=== PATIENT | male | born 1965 | race American Indian/Alaskan Native ===

== ENCOUNTER 2017-02-11 19:25 | Inpatient (IN) ==
[2017-02-11] MEDS ORDERED: ACETAMINOPHEN 325 MG TABLET PO PRN (21:31)
[2017-02-11] MEDS ORDERED: MORPHINE 2 MG/1 ML SYRINGE IV PRN (21:37)
[2017-02-12 03:11] LABS: Basophils % 0.5 % (0.0-0.8); Eosinophils # 0.3 10*3/uL (0.0-0.87); Eosinophils % 7.4 % (0.00-10.9); Hematocrit 31.4 VOL% (42.0-52.0); Hemoglobin 11.3 GM/DL (14.0-18.0); Immature Granulocytes % 0.3 %; Immature Granulocytes Absolute 0.01 #; Lymphocytes # 0.8 10*3/uL (1.4-4.0); Lymphocytes % 20.8 % (21.2-54.2); Mean Corpuscular Hemoglobin 38 PG (27-34); Mean Corpuscular Volume 104.3 FL (87-102); Mean Platelet Volume 11.3 FL (9.6-12.0); Monocytes # 0.6 10*3/uL (0.11-0.8); Monocytes % 15.7 % (1.7-12.7); Neutrophils # 2.2 10*3/uL (1.4-7.4); Neutrophils % 55.3 % (38.7-73.9); Red Blood Count 3.01 MC/CUMM (3.8-5.5); Red Cell Distribution Width 13.6 % (9.3-17.3); White Blood Count 3.9 T/CUMM (4-12)
[2017-02-12 03:27] LABS: Platelet Count 53 T/CUMM (130-400)
[2017-02-12 03:45] LABS: Calcium 7.6 MG/DL (8.5-10.1); Osmolality,Calculated 281.8 MOS/KG (273-304); Potassium 3.3 MMOL/L (3.5-5.1)
[2017-02-12 05:49] LABS: Eosinophils 5 % (0-10); Lymphocytes 24 % (20-55); Segmented Neutrophils 67 % (50-85); Total Cells Counted 100
[2017-02-12 05:50] LABS: Anisocytosis 1+; Platelet Estimate Decreased; Tear Drop Cells Few
[2017-02-12] MEDS: amLODIPine 10 MG TABLET PO SCH (09:17)
[2017-02-12] MEDS: ASPIRIN EC 81 MG TABLET PO SCH (09:18)
[2017-02-12] MEDS: ALLOPURINOL 100 MG TABLET PO SCH (09:18)
[2017-02-12] MEDS: ENOXAPARIN 30 MG/0.3 ML SYRINGE SUBCUT SCH (09:18)
[2017-02-12] MEDS: PANTOPRAZOLE 40 MG TABLET PO SCH (09:18)
[2017-02-12] MEDS: CALCIUM (CARBONATE) 500 MG TABLET PO SCH ×2 (09:18→21:03)
[2017-02-13] MEDS: ASPIRIN EC 81 MG TABLET PO SCH (08:44)
[2017-02-13] MEDS: ALLOPURINOL 100 MG TABLET PO SCH (08:44)
[2017-02-13] MEDS: amLODIPine 10 MG TABLET PO SCH (08:44)
[2017-02-13] MEDS: CALCIUM (CARBONATE) 500 MG TABLET PO SCH (08:44)
[2017-02-13] MEDS: PANTOPRAZOLE 40 MG TABLET PO SCH (08:44)
[2017-02-13] MEDS: ENOXAPARIN 30 MG/0.3 ML SYRINGE SUBCUT SCH (08:47)
[2017-02-13 12:25] VITALS: BP 115/67
== END 2017-02-13 13:30 | disposition home or self-care (01) | DRG 313 ==
LOC: EDUNIT# → N.ED 19:25 → N.EDINP 21:31 → N.TELEN 22:02
PROVIDERS: ADMIT Internal Medicine Infectious Disease; ATTEND Internal Medicine Infectious Disease

== ENCOUNTER 2018-04-11 07:54 | Inpatient (IN) ==
[2018-04-11] MEDS ORDERED: ACETAMINOPHEN 325 MG TABLET PO PRN (10:13)
[2018-04-11] MEDS ORDERED: ONDANSETRON 4 MG/2 ML VIAL IV PRN (10:13)
[2018-04-11] MEDS ORDERED: guaiFENesin/DM ER 600-30 MG TABLET PO PRN (10:13)
[2018-04-11] MEDS ORDERED: ALBUTEROL 2.5 MG/3 ML NEB RESP TX PRN (10:30)
[2018-04-11] MEDS: cefTRIAXone 1,000 MG in SYRINGE 1 EACH IV SCH (11:12)
[2018-04-11] MEDS: AZITHROMYCIN INJ 500 MG in SODIUM CHLORIDE 0.9% 250 ML IV SCH (11:14)
[2018-04-11] MEDS: ALBUTEROL/IPRATROPIUM 3 ML NEB RESP TX SCH ×2 (13:54→19:10)
[2018-04-11] MEDS: BENZONATATE 100 MG CAPSULE PO SCH ×2 (14:08→21:42)
[2018-04-11] MEDS ORDERED: hydrALAZINE 20 MG/1 ML VIAL IV PRN (14:52)
[2018-04-11] MEDS ORDERED: SEVELAMER CARBONATE 800 MG TABLET PO SCH (15:00)
[2018-04-11] MEDS: SEVELAMER CARBONATE 800 MG TABLET PO SCH (16:12)
[2018-04-11] MEDS ORDERED: BACITRACIN OINT 0.9 GM PACK TOP SCH (17:00)
[2018-04-11] MEDS: DOCUSATE SODIUM 100 MG CAPSULE PO SCH (21:42)
[2018-04-12] MEDS: ALBUTEROL/IPRATROPIUM 3 ML NEB RESP TX SCH ×4 (00:12→19:10)
[2018-04-12 05:59] LABS: Basophils % 0.2 % (0.0-0.8); Eosinophils # 0.1 10*3/uL (0.0-0.87); Eosinophils % 2.7 % (0.00-10.9); Hematocrit 25.5 VOL% (42.0-52.0); Hemoglobin 8.3 GM/DL (14.0-18.0); Immature Granulocytes % 0.5 %; Immature Granulocytes Absolute 0.02 #; Lymphocytes # 0.5 10*3/uL (1.4-4.0); Lymphocytes % 11.8 % (21.2-54.2); Mean Corpuscular HGB Conc 32.5 GM/DL (32-36); Mean Corpuscular Hemoglobin 37 PG (27-34); Mean Corpuscular Volume 114.9 FL (87-102); Mean Platelet Volume 11.3 FL (9.6-12.0); Monocytes # 0.4 10*3/uL (0.11-0.8); Monocytes % 10.1 % (1.7-12.7); Neutrophils % 74.7 % (38.7-73.9); Platelet Count 40 T/CUMM (130-400); Red Blood Count 2.22 MC/CUMM (3.8-5.5); Red Cell Distribution Width 15.8 % (9.3-17.3); White Blood Count 4.1 T/CUMM (4-12)
[2018-04-12 06:28] LABS: Calcium 8.7 MG/DL (8.5-10.1); Osmolality,Calculated 297.1 MOS/KG (273-304); Potassium 5.7 MMOL/L (3.5-5.1)
[2018-04-12 06:46] LABS: Eosinophils 2 % (0-10); Hypochromasia 1+; Lymphocytes 10 % (20-55); Segmented Neutrophils 77 % (50-85); Total Cells Counted 100
[2018-04-12 06:47] LABS: Macrocytosis Slight; Platelet Estimate Decreased
[2018-04-12] MEDS ORDERED: EPOETIN ALFA 10,000 UNIT/1 ML VIAL IV PRN (08:46)
[2018-04-12] MEDS: SEVELAMER CARBONATE 800 MG TABLET PO SCH ×3 (09:12→17:48)
[2018-04-12] MEDS: BENZONATATE 100 MG CAPSULE PO SCH ×3 (09:12→20:35)
[2018-04-12] MEDS: PANTOPRAZOLE 40 MG TABLET PO SCH (09:12)
[2018-04-12] MEDS: DOCUSATE SODIUM 100 MG CAPSULE PO SCH ×2 (09:12→20:35)
[2018-04-12] MEDS: AZITHROMYCIN INJ 500 MG in SODIUM CHLORIDE 0.9% 250 ML IV SCH (13:24)
[2018-04-12] MEDS: cefTRIAXone 1,000 MG in SYRINGE 1 EACH IV SCH (13:25)
[2018-04-13] MEDS: ALBUTEROL/IPRATROPIUM 3 ML NEB RESP TX SCH ×2 (00:14→07:11)
[2018-04-13 06:08] LABS: Basophils % 0.6 % (0.0-0.8); Eosinophils # 0.1 10*3/uL (0.0-0.87); Eosinophils % 3.2 % (0.00-10.9); Hematocrit 26.4 VOL% (42.0-52.0); Hemoglobin 8.7 GM/DL (14.0-18.0); Immature Granulocytes % 0.3 %; Immature Granulocytes Absolute 0.01 #; Lymphocytes # 0.4 10*3/uL (1.4-4.0); Lymphocytes % 11.4 % (21.2-54.2); Mean Corpuscular Hemoglobin 38 PG (27-34); Mean Corpuscular Volume 114.3 FL (87-102); Mean Platelet Volume 11.2 FL (9.6-12.0); Monocytes # 0.6 10*3/uL (0.11-0.8); Monocytes % 16.7 % (1.7-12.7); Neutrophils # 2.3 10*3/uL (1.4-7.4); Neutrophils % 67.8 % (38.7-73.9); Platelet Count 42 T/CUMM (130-400); Red Blood Count 2.31 MC/CUMM (3.8-5.5); Red Cell Distribution Width 15.3 % (9.3-17.3); White Blood Count 3.4 T/CUMM (4-12)
[2018-04-13 06:22] LABS: Calcium 8.5 MG/DL (8.5-10.1); Osmolality,Calculated 288.7 MOS/KG (273-304); Potassium 4.2 MMOL/L (3.5-5.1)
[2018-04-13 06:57] LABS: Band Neutrophils 4 % (0-10); Eosinophils 4 % (0-10); Hypochromasia 2+; Lymphocytes 10 % (20-55); Platelet Estimate Decreased; Segmented Neutrophils 66 % (50-85); Total Cells Counted 100
[2018-04-13] MEDS: SEVELAMER CARBONATE 800 MG TABLET PO SCH ×2 (08:12→12:34)
[2018-04-13] MEDS: BENZONATATE 100 MG CAPSULE PO SCH (08:12)
[2018-04-13] MEDS: DOCUSATE SODIUM 100 MG CAPSULE PO SCH (08:12)
[2018-04-13] MEDS: PANTOPRAZOLE 40 MG TABLET PO SCH (08:12)
[2018-04-13] MEDS ORDERED: AZITHROMYCIN 250 MG TABLET PO SCH (09:00)
[2018-04-13 12:05] VITALS: BP 165/92
[2018-04-13] MEDS: cefTRIAXone 1,000 MG in SYRINGE 1 EACH IV SCH (12:34)
== END 2018-04-13 14:20 | disposition home or self-care (01) | DRG 193 ==
LOC: N.5E → SUATTDRO 09:47
PROVIDERS: ADMIT Internal Medicine; ATTEND Internal Medicine

== ENCOUNTER 2019-10-16 18:25 | Inpatient (IN) ==
[2019-10-16 19:45] LABS: Basophils % 0.2 % (0.0-0.8); Eosinophils # 0.1 10*3/uL (0.0-0.87); Eosinophils % 1.9 % (0.00-10.9); Immature Granulocytes % 0.9 %; Immature Granulocytes Absolute 0.05 #; Lymphocytes # 0.6 10*3/uL (1.4-4.0); Lymphocytes % 10.5 % (21.2-54.2); Mean Corpuscular HGB Conc 30.2 GM/DL (32-36); Mean Corpuscular Volume 118.5 FL (87-102); Mean Platelet Volume 10.9 FL (9.6-12.0); Monocytes % 12.7 % (1.7-12.7); NRBC # 0.02 10*3/uL; Neutrophils % 73.8 % (38.7-73.9); Platelet Count 58 T/CUMM (130-400); Red Blood Count 1.51 MC/CUMM (3.8-5.5); Red Cell Distribution Width 16.3 % (9.3-17.3); White Blood Count 5.4 T/CUMM (4-12)
[2019-10-16 19:48] LABS: Hematocrit 17.9 VOL% (42.0-52.0); Hemoglobin 5.4 GM/DL (14.0-18.0)
[2019-10-16 19:56] LABS: INR 1.3; PT Patient Result 13.4 SECS (9.8-11.9); Partial Thromboplastin Time 32.4 SECS (23.9-33.8)
[2019-10-16 20:10] LABS: Alanine Aminotransferase 9 U/L (16-61); Albumin 2.4 G/DL (3.4-5.0); Alkaline Phosphatase 80 U/L (45-117); Aspartate Amino Transferase 10 U/L (0-37); Blood Urea Nitrogen 26 MG/DL (7-18); Calcium 8.1 MG/DL (8.5-10.1); Estimated Glom Filtration Rate 7 ML/MIN; Glucose 85 MG/DL (74-106); Osmolality,Calculated 278.7 MOS/KG (273-304); Total Protein 6.6 G/DL (6.4-8.3); Troponin I 0.044 NG/ML (0.00-0.045)
[2019-10-16] MEDS ORDERED: SODIUM CHLORIDE 0.9% 1,000 ML IV PRN (20:42)
[2019-10-16] MEDS ORDERED: DESMOPRESSIN 4 MCG/1 ML AMP IV STA (20:49)
[2019-10-16 21:09] LABS: Anisocytosis 2+; Hypochromasia Slight; Macrocytosis 2+; Microcytosis Slight; Platelet Estimate Decreased; Polychromasia 1+
[2019-10-16] MEDS ORDERED: ALBUTEROL 2.5 MG/3 ML NEB RESP TX PRN (22:10)
[2019-10-16] MEDS ORDERED: MORPHINE 4 MG/1 ML VIAL IV PRN (22:11)
[2019-10-16] MEDS ORDERED: ONDANSETRON 4 MG/2 ML VIAL IV PRN (22:11)
[2019-10-16] MEDS ORDERED: DESMOPRESSIN INJ 30 MCG in SODIUM CHLORIDE 0.9% 50 ML IV ONE (22:30)
[2019-10-17 02:28] LABS: Albumin 2.4 G/DL (3.4-5.0); Calcium 8.1 MG/DL (8.5-10.1); Osmolality,Calculated 277.8 MOS/KG (273-304); Total Protein 6.5 G/DL (6.4-8.3)
[2019-10-17 07:33] LABS: Basophils % 0.4 % (0.0-0.8); Eosinophils # 0.1 10*3/uL (0.0-0.87); Eosinophils % 2.7 % (0.00-10.9); Immature Granulocytes % 0.8 %; Immature Granulocytes Absolute 0.04 #; Lymphocytes # 0.6 10*3/uL (1.4-4.0); Lymphocytes % 11.3 % (21.2-54.2); Mean Corpuscular HGB Conc 31.2 GM/DL (32-36); Mean Corpuscular Volume 109.2 FL (87-102); Mean Platelet Volume 10.4 FL (9.6-12.0); Monocytes % 14.8 % (1.7-12.7); Red Cell Distribution Width 19.8 % (9.3-17.3); White Blood Count 4.9 T/CUMM (4-12)
[2019-10-17 07:40] LABS: Hemoglobin 8.1 GM/DL (14.0-18.0); Red Blood Count 2.38 MC/CUMM (3.8-5.5)
[2019-10-17 07:41] LABS: Platelet Count 87 T/CUMM (130-400)
[2019-10-17 08:00] LABS: Anisocytosis 1+; Hypochromasia Slight; Macrocytosis 1+
[2019-10-17 08:01] LABS: Platelet Estimate Decreased
[2019-10-17] MEDS: Sucroferric Oxyhydroxide [Velphoro] 1,000 MG PO SCH ×3 (09:22→18:48)
[2019-10-17] MEDS ORDERED: amLODIPine 10 MG TABLET PO SCH (10:00)
[2019-10-17] MEDS: PANTOPRAZOLE 40 MG TABLET PO SCH (10:15)
[2019-10-17 14:57] LABS: Hematocrit 25.1 VOL% (42.0-52.0); Hemoglobin 7.9 GM/DL (14.0-18.0)
[2019-10-18 06:06] LABS: Basophils % 0.3 % (0.0-0.8); Eosinophils # 0.2 10*3/uL (0.0-0.87); Eosinophils % 3.9 % (0.00-10.9); Hematocrit 25.2 VOL% (42.0-52.0); Hemoglobin 7.8 GM/DL (14.0-18.0); Immature Granulocytes % 0.8 %; Immature Granulocytes Absolute 0.05 #; Lymphocytes # 0.7 10*3/uL (1.4-4.0); Lymphocytes % 11.1 % (21.2-54.2); Mean Corpuscular Volume 112.5 FL (87-102); Mean Platelet Volume 11.5 FL (9.6-12.0); Monocytes % 14.3 % (1.7-12.7); NRBC # 0.02 10*3/uL; Neutrophils % 69.6 % (38.7-73.9); Red Blood Count 2.24 MC/CUMM (3.8-5.5); Red Cell Distribution Width 20.6 % (9.3-17.3); White Blood Count 6.1 T/CUMM (4-12)
[2019-10-18 06:07] LABS: Platelet Count 68 T/CUMM (130-400)
[2019-10-18 06:25] LABS: Calcium 8.5 MG/DL (8.5-10.1); Osmolality,Calculated 272.4 MOS/KG (273-304)
[2019-10-18 06:41] LABS: Hypochromasia 1+; Macrocytosis 1+; Polychromasia Slight
[2019-10-18 06:42] LABS: Platelet Estimate Decreased
[2019-10-18] MEDS ORDERED: SODIUM POLYSTYRENE SULFATE 15 GM/60 ML BOTTLE PO ONE (07:41)
[2019-10-18] MEDS ORDERED: amLODIPine 5 MG TABLET PO SCH (09:00)
[2019-10-18] MEDS: Sucroferric Oxyhydroxide [Velphoro] 1,000 MG PO SCH ×2 (14:11→17:03)
[2019-10-18] MEDS: PANTOPRAZOLE 40 MG TABLET PO SCH (14:29)
[2019-10-18 14:30] LABS: Albumin 3.2 G/DL (3.4-5.0); Bilirubin,Direct 0.44 MG/DL (0.0-0.20); Bilirubin,Total 1.4 MG/DL (0.2-1.0); Total Protein 7.9 G/DL (6.4-8.3)
[2019-10-18 16:36] VITALS: BP 169/90
== END 2019-10-18 17:51 | disposition home or self-care (01) | DRG 919 ==
LOC: EDUNIT# → EDBD → N.ED 18:25 → N.EDINP 20:40 → N.ICU 21:10 → N.TELEN 10-17 16:07
PROVIDERS: ADMIT Student in an Organized Health Care Education/Training Program; ATTEND Student in an Organized Health Care Education/Training Program

== ENCOUNTER 2020-09-22 12:39 | Inpatient (IN) ==
[2020-09-22] MEDS ORDERED: GLUCAGON 1 MG VIAL IM PRN (17:22)
[2020-09-22] MEDS ORDERED: ONDANSETRON 4 MG/2 ML VIAL IV PRN (17:22)
[2020-09-22] MEDS ORDERED: DEXTROSE 50% 25 GM/50 ML VIAL IV PRN (17:22)
[2020-09-22] MEDS ORDERED: SODIUM CHLORIDE 0.9% 1,000 ML IV PRN (17:43)
[2020-09-22] MEDS ORDERED: ALBUTEROL 2.5 MG/3 ML NEB RESP TX PRN (19:00)
[2020-09-23 06:34] LABS: Basophils % 0.7 % (0.0-0.8); Eosinophils # 0.4 10*3/uL (0.0-0.87); Eosinophils % 8.5 % (0.00-10.9); Hematocrit 24.9 VOL% (42.0-52.0); Hemoglobin 7.9 GM/DL (14.0-18.0); Immature Granulocytes % 1.4 %; Immature Granulocytes Absolute 0.06 #; Lymphocytes # 0.3 10*3/uL (1.4-4.0); Lymphocytes % 7.6 % (21.2-54.2); Mean Corpuscular HGB Conc 31.7 GM/DL (32-36); Mean Corpuscular Volume 112.7 FL (87-102); Mean Platelet Volume 11.5 FL (9.6-12.0); Monocytes % 11.6 % (1.7-12.7); Neutrophils % 70.2 % (38.7-73.9); Red Blood Count 2.21 MC/CUMM (3.8-5.5); Red Cell Distribution Width 15.9 % (9.3-17.3); White Blood Count 4.2 T/CUMM (4-12)
[2020-09-23 06:35] LABS: Platelet Count 41 T/CUMM (130-400)
[2020-09-23 06:52] LABS: Albumin 3.1 G/DL (3.4-5.0); Bilirubin,Total 1.7 MG/DL (0.2-1.0); Calcium 8.6 MG/DL (8.5-10.1); Osmolality,Calculated 289.2 MOS/KG (273-304); Potassium 5.3 MMOL/L (3.5-5.1); Total Protein 8.3 G/DL (6.4-8.2)
[2020-09-23 07:02] LABS: Hypochromasia 1+; Microcytosis 1+; Platelet Estimate Decreased
[2020-09-23] MEDS: amLODIPine 5 MG TABLET PO SCH (08:42)
[2020-09-23] MEDS: SUCROFERRIC OXYHYDROXIDE 500 MG PO SCH ×3 (08:43→16:16)
[2020-09-24 05:30] LABS: Basophils % 0.6 % (0.0-0.8); Eosinophils # 0.3 10*3/uL (0.0-0.87); Eosinophils % 7.4 % (0.00-10.9); Hematocrit 25.1 VOL% (42.0-52.0); Hemoglobin 7.9 GM/DL (14.0-18.0); Immature Granulocytes % 0.3 %; Immature Granulocytes Absolute 0.01 #; Lymphocytes # 0.4 10*3/uL (1.4-4.0); Lymphocytes % 10.8 % (21.2-54.2); Mean Corpuscular HGB Conc 31.5 GM/DL (32-36); Mean Corpuscular Volume 112.6 FL (87-102); Mean Platelet Volume 11.7 FL (9.6-12.0); Monocytes % 14.2 % (1.7-12.7); Neutrophils % 66.7 % (38.7-73.9); Red Blood Count 2.23 MC/CUMM (3.8-5.5); Red Cell Distribution Width 15.9 % (9.3-17.3); White Blood Count 3.5 T/CUMM (4-12)
[2020-09-24 05:31] LABS: Platelet Count 42 T/CUMM (130-400)
[2020-09-24 05:36] LABS: INR 1.1; PT Patient Result 12.8 SECS (10.5-12.0); Partial Thromboplastin Time 30.2 SECS (23.9-33.8)
[2020-09-24 05:47] LABS: Albumin 2.9 G/DL (3.4-5.0); Bilirubin,Total 1.7 MG/DL (0.2-1.0); Calcium 8.4 MG/DL (8.5-10.1); Osmolality,Calculated 290.3 MOS/KG (273-304); Potassium 4.7 MMOL/L (3.5-5.1); Total Protein 7.7 G/DL (6.4-8.2); Uric Acid 5.3 MG/DL (3.5-7.2)
[2020-09-24 05:49] LABS: Vitamin B12 685 PG/ML (211-911)
[2020-09-24 05:53] LABS: Hypochromasia 1+; Microcytosis 1+; Platelet Estimate Decreased
[2020-09-24 05:54] LABS: Immunoglobulin A 582 MG/DL (70-400); Immunoglobulin G 1840 MG/DL (700-1600); Immunoglobulin M 54 MG/DL (40-230)
[2020-09-24 07:57] LABS: Immunoglobulin A (Chem) 582 MG/DL (70-400); Immunoglobulin G (Chem) 1840 MG/DL (700-1600); Immunoglobulin M (Chem) 54 MG/DL (40-230)
[2020-09-24 08:14] VITALS: BP 163/84
[2020-09-24] MEDS: amLODIPine 5 MG TABLET PO SCH (09:15)
[2020-09-24] MEDS: SUCROFERRIC OXYHYDROXIDE 500 MG PO SCH ×2 (09:16→11:36)
== END 2020-09-24 15:45 | disposition home or self-care (01) | DRG 813 ==
LOC: SUATTDRO 15:48 → N.5E 15:48
PROVIDERS: ADMIT Internal Medicine; ATTEND Internal Medicine